=== PATIENT | male | born 1980 | race Caucasian/White ===

== ENCOUNTER 2020-10-22 15:56 | Emergency (ER) | payer OTHER ==
[~2020-10-22] VITALS: Ht 177.8 cm; Wt 97.9 kg
[2020-10-22 16:12] VITALS: BP 185/81
--- NOTE | 2020-10-22 16:19 | RAD ---
EXAM: Left ankle, 3 views. HISTORY: Rolled ankle. COMPARISON: None. FINDINGS: 3 views of the left ankle are obtained. There are chronic appearing corticated ossicles inf erior to the medial and lateral malleoli, likely due to chronic nonunited fracture fragments. No conv incing acute fracture is seen. There is ankle soft tissue swelling. There is no osteochondral lesion. There is enthesopathy at Achilles tendon insertion. IMPRESSION: 1. Soft tissue swelling. No convincing acute fracture. 2. 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 Electronically signed by: Nga Barbosa MD (10/22/2020 4:16 PM) [id number]
--- NOTE | 2020-10-22 16:20 | PHYS DOC ---
Past History Past Medical History: No Pertinent History (KAYLA OROPEZA DO) Past Surgical History: No Surgical History (KAYLA OROPEZA DO) Smoking: Non-smoker Alcohol Use: None Drug Use: None (KAYLA OROPEZA DO) General Adult EDM: Chief Complaint: ANKLE PROBLEM HPI: HPI: Patient is a 40-year-old male who presents with left ankle pain. Patient states that he was running when he rolled his left ankle. Patient reports incident happened on Thursday. Patient's been using ice, ankle brace, taking ibuprofen and elevating. Patient states he still unable to bear weight. Patient took 400 mg ibuprofen a few hours ago. Denies health history. (VIPIN NOEL APRN) Review of Systems: Review of Systems: Constitutional: Denies fever or chills Respiratory: Denies cough or shortness of breath Cardiovascular: Denies chest pain or edema Musculoskeletal: Reports left ankle pain (VIPIN NOEL APRN) Physical Exam: PE: Constitutional: Well developed, well nourished, no acute distress, non-toxic appearance. [] Cardiovascular:Heart rate regular rhythm, no murmur [] Lungs & Thorax: Bilateral breath sounds clear to auscultation [] Extremities: Left ankle tenderness, ROM intact, no edema. [] (VIPIN NOEL APRN) EKG: EKG: [] (VIPIN NOEL APRN) Radiology/Procedures: Radiology/Procedures: []EXAM: Left ankle, 3 views. HISTORY: Rolled ankle. COMPARISON: None. FINDINGS: 3 views of the left ankle are obtained. There are chronic appearing corticated ossicles inferior to the medial and lateral malleoli, likely due to chronic nonunited fracture fragments. No convincing acute fracture is seen. There is ankle soft tissue swelling. There is no osteochondral lesion. There is enthesopathy at Achilles tendon insertion. IMPRESSION: 1. Soft tissue swelling. No convincing acute fracture. 2. 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 Electronically signed by: Nga Barbosa MD (10/22/2020 4:16 PM) [id number] (VIPIN NOEL APRN) Heart Score: C/O Chest Pain: No Risk Factors: Risk Factors: DM, Current or recent (<one month) smoker, HTN, HLP, family history of CAD, obesity. Risk Scores: Score 0 - 3: 2.5% MACE over next 6 weeks - Discharge Home Score 4 - 6: 20.3% MACE over next 6 weeks - Admit for Clinical Observation Score 7 - 10: 72.7% MACE over next 6 weeks - Early Invasive Strategies (VIPIN NOEL APRN) Course & Med Decision Making: Course & Med Decision Making Pertinent Labs and Imaging studies reviewed. (See chart for details) [] Patient presents to emergency room with left ankle pain after rolling his ankle while running. Patient reports that he was injured on Thursday. Patient's been using ice, ankle brace, ibuprofen, and elevation. Patient states that he is unable to bear weight. Left ankle x-ray ordered to rule out fracture. Pedal pulses intact. Patient took ibuprofen a few hours ago. Denying needing anything for pain at this time. X-ray of ankle is negative for acute fracture. Patient to continue rice instructions and ibuprofen. Patient continues to have pain, follow-up with PCP. Patient can return to emergency room with worsening symptoms or concerns. (VIPIN NOEL APRN) Dragon Disclaimer: Dragon Disclaimer: This electronic medical record was generated, in whole or in part, using a voice recognition dictation system. (VIPIN NOEL APRN) Departure Departure: Impression: Primary Impression: Ankle sprain Qualified Codes: S93.402A - Sprain of unspecified ligament of left ankle, initial encounter Disposition: HOME / SELF CARE / HOMELESS Condition: STABLE Referrals: WILL DE LEON DO (PCP) Patient Instructions: Ankle Sprain Additional Instructions: You were seen in the emergency room for left ankle pain after rolling your ankle on Thursday. X-ray of your left ankle was negative for fracture. Continue to rest, ice, elevate, and ibuprofen for pain. Follow-up with PCP if you continue to have discomfort. You can always return to the emergency room with worsening symptoms or concerns. EMERGENCY DEPARTMENT GENERAL DISCHARGE INSTRUCTIONS Thank you for coming to [facility] (ED) today and trusting us with you care. We trust that you had a positivie experience in our Emergency Department. If you wish to speak to the department management, you may call the director at [phone]. YOUR FOLLOW UP INSTRUCTIONS ARE FOLLOWS: 1. Do you have a private Doctor? If you do not have a private doctor, please ask for a resource list of physicians or clinics that may be able to assist you with follow up care. 2. The Emergency Physician has interpreted your x-rays. The X-Ray specialist will also review them. If there is a change in the findings, you will be notified in 48 hours when at all possible. 3. A lab test or culture has been done, your results will be reviewed and you will be notified if you need a change in treatment. ADDITIONAL INSTRUCTIONS AND INFORMATION: 1. Your care today has been supervised by a physician who is specially trained in emergency care. Many problems require more than one evaluation for a complete diagnosis and treatment. We recommend that you schedule your follow up appointment as recommended to ensure complete treatment of you illness or injury. If you are unable to obtain follow up care and continue to have a problem, or if your condition worsens, we recommend that you return to the ED. 2. We are not able to safely determine your condition over the phone nor are we able to give sound medical advice over the phone. For these safety reasons, if you call for medical advice we will ask you to come to the ED for further evaluation. 3. If you have any questions regarding these discharge instructions please call the ED at [phone]. SAFETY INFORMATION: In the interest of safety, wellness, and injury prevention; we encourage you to wear your sealbelt, if you smoke; quite smoking, and we encourage family to use a protective helmet for bicycling and other sporting events that present an increased risk for head injury. IF YOUR SYMPTOMS WORSEN OR NEW SYMPTOMS DEVELOP, OR YOU HAVE CONCERNS ABOUT YOUR CONDITION; OR IF YOUR CONDITION WORSENS WHILE YOU ARE WAITING FOR YOUR FOLLOW UP APPOINTMENT; EITHER CONTACT YOUR PRIMARY CARE DOCTOR, THE PHYSICIAN WHOSE NAME AND NUMBER YOU WERE GIVEN, OR RETURN TO THE ED IMMEDIATELY. Attending Signature Attending Signature I have reviewed the PA/[employer] WORKER's note and plan of care. I was available for consultation as needed during the patient's visit in the emergency department. I agree with the clinical impression, plan, and disposition. (KAYLA OROPEZA DO) VIPIN NOEL APRN Oct 22, 2020 16:20 KAYLA OROPEZA DO Oct 22, 2020 20:22
== END 2020-10-22 16:45 | disposition home or self-care (01) ==
LOC: ER 15:56
DX: S93.402A Sprain of unspecified ligament of left ankle, initial encounter (principal); X50.9XXA Other and unspecified overexertion or strenuous movements or postures, initial encounter; Y93.89 Activity, other specified; Y92.89 Other specified places as the place of occurrence of the external cause; Y99.8 Other external cause status
CPT/HCPCS: 73610; 99283